=== PATIENT | male | born 1965 | race African-American/Black ===

== ENCOUNTER 2016-06-17 14:30 | Inpatient (IN) ==
[2016-06-17] MEDS ORDERED: SODIUM CHLORIDE 0.9% 500 ML IV STA (15:05)
[2016-06-17] MEDS ORDERED: MECLIZINE 25 MG TABLET PO STA (15:05)
[2016-06-17] MEDS ORDERED: MECLIZINE 25 MG TABLET ONE (15:18)
--- NOTE | 2016-06-17 15:25 | CT Report ---
CT head/brain wo con Indication: Dizziness Comparison: None Technique: Multiple axial tomographic images of the brain were obtained without use of intravenous contrast. Findings: Midline structures are nondisplaced. There is no acute intracranial hemorrhage or evidence of hydrocephalus. Paranasal sinuses and mastoid air cells are essentially clear. IMPRESSION: No acute intracranial abnormality demonstrated. PROCEDURE INTERPRETED AT [facility] DEPARTMENT OF RADIOLOGY Final Report Signed by: Dr James Darby
--- NOTE | 2016-06-17 15:35 | XRay Report ---
XR chest 1V portable Indication: SOB Comparison: Chest x-ray dated August 11, 2014 Technique: Single frontal view of the chest Findings: Borderline cardiomegaly. Mild right infrahilar opacification may reflect atelectasis or early consolidative process such as pneumonia. There is mild elevation of the right hemidiaphragm. Osseous and surrounding soft tissue structures appear grossly unchanged. IMPRESSION: As above. PROCEDURE INTERPRETED AT [facility] DEPARTMENT OF RADIOLOGY Final Report Signed by: Dr James Darby
--- NOTE | 2016-06-17 15:51 | Emergency Department Note ---
Iesha Au Brittany, am scribing for, and in the presence of, Dudley Martínez MD 15:17. Tanya Au Charles R, MD, personally performed the services described in this documentation, ascribed by Mima Julian in my presence, and it is both accurate and complete [id number] . Arrival - Arrival Chief Complaint: Extremity Problem Stated Complaint: LEFT ARM/LEFT KNEE PAIN, BLURRED VISION ED Nursing Triage Note: PT C/O PAIN TO LEFT ARM AND LEFT KNEE, WAS SEEN AT [facility] ER LAST NIGHT AND GIVEN STEROID SHOT WITH RELIEF. PT STATES PAIN RETURNED THIS AM. STATES AT 1000 THIS AM HE STARTED TO SEE BLACK SPOTS OFF AND ON. PT ALSO REPORTS URINARY S/S X2 DAYS. ADMITS TO MARIJUANA USE RECENTLY Limitations: No Limitations Source: Patient Time Seen by Provider: 06/17/16 14:45 - History of Present Illness HPI Narrative: This is a 50 y/o black male,who presents to the ED by EMS with c/o arthralgia which started last night. He was seen at [facility] ER for the same complaints. He states he was given a steroid shot which helped. He states this morning his knees, hands, arms and back started to hurt again. He was written an RX for prednisone. Pt also complains of dizziness. Pt has no other complaints /pain in the ED at this time. Pt has a PMHx of HTN, peripheral neuropathy, eye problems, fibromyalgia, GOUT, RA, GERD, enlarged prostate, diverticulits, back/ neck problems, degenerative disk disease,and anemia. Pt has had orthopedic surgery. Pt has a family medical Hx of HTN and diabetes. Pt denies the use of tobacco and alcohol, but notes the use of marijuana. Pt states he thinks he "Hit " some marijuana last week. Pt's PCP is Dr. Mendoza. Pt states he has an appointment with a neurologist on the of this month for "swelling in the groin." Onset (ago): hour(s) (Started last night) Consistency: constant Severity: moderate Allergies/Adverse Reactions: Allergies Allergy/AdvReac Type Severity Reaction Status Date / Time No Known Allergies Allergy Verified 06/17/16 14:38 Home Medications: Home Medications Medication Instructions Recorded Confirmed Type Baclofen [Baclofen] 10 mg PO QID 11/19/14 04/21/16 History Ergocalciferol [Drisdol] 50,000 unit PO Q7D 11/19/14 04/21/16 History Furosemide Tab [Lasix Tab] 40 mg PO DAILY 11/19/14 04/10/16 History HYDROcodone/ACETAMIN 10-325 [[place] 1 tablet PO TID 11/19/14 04/21/16 History 10-325] Losartan [Cozaar] 50 mg PO DAILY 11/19/14 04/10/16 History Omeprazole Magnesium [Prilosec Otc] 20 mg PO DAILY 11/19/14 04/21/16 History Pramipexole [Mirapex] 0.25 mg PO BEDTIME 11/19/14 04/21/16 History Tramadol HCl [Tramadol HCl] 50 mg PO BID 11/19/14 04/21/16 History predniSONE TAB [PredniSONE] 10 mg PO DAILY 11/19/14 04/10/16 History Methotrexate Tab 6 tablet PO Q7DAY 01/24/15 04/21/16 History Allopurinol [Zyloprim] 300 mg PO DAILY 04/10/16 04/10/16 History Colchicine [Colcrys] 0.6 mg PO DAILY PRN 04/10/16 04/10/16 History Etanercept [Enbrel] 50 mg SQ Q7DAY 04/10/16 04/10/16 History Folic Acid Tab 1 mg PO DAILY 04/10/16 04/10/16 History Gabapentin [Neurontin] 800 mg PO TID 04/10/16 04/10/16 History sulfaSALAzine [Azulfidine] 500 mg PO BID 04/10/16 04/21/16 History Cyanocobalamin (Vitamin B-12) 1,000 mcg PO Q14D 04/21/16 04/21/16 History [Vitamin B-12] Tamsulosin [Flomax] 0.4 mg PO DAILY 04/21/16 04/21/16 History Review of System - Review of System 12 point system: reviewed and no additional remarkable complaints except as stated - Review of System Musculoskeletal: Present: arthralgia (Pain in the knees, hands, and back) Medical,Surgical,& Family Hx - Medical History Cardio: History of: Hypertension Psychological: No history of: Anxiety Disorders, Bipolar Disorder, Depression, Schizophrenia Neurology: History of: Peripheral Neuropathy No history of: Seizures HEENT: History of: Eye Problem (DRY, ITCHING) Rheumatology: History of;: Fibromyalgia, Gout, Rheumatoid Arthritis Genitourinary: History of: Prostate Problems (ENLARGED PROSTATE) Gastrointestinal: History of: Diverticulitis/ Diverticulosis, GERD Musculoskeletal: History of: Back/Neck Problems (BULGING DISK), Degenerative Disk Disease, Musculoskeletal Problems (ARTHRITIS IN KNEES) Hematology: History of: Anemia Reproductive: No histroy: Reproductive Cancer Other: History of: Miscellaneous Medical Problems (arthritis) - Surgical History Cardiac Surgeries: Patient Denies: Cardiac Catheterization HEENT Surgeries: Patient denies: Eye Surgery, Tonsilectomy & Adenoidectomy Abdominal Surgeries: Patient denies: Abdominal Surgery Reproductive Surgeries: Patient denies;: Genitourinary Surgery Orthopedic Surgeries: Surgical HX of;: Orthopedic Surgery - Family History Family History: Reports;: Family Diabetes (MOTHER, SISTER), Family Hypertension (MOTHER) Denies;: Family Anesthesia Reaction, Family Cancer, Family Heart Disease, Family Stroke - Social History Smoking Status: Former smoker Frequency of Alcohol Use: None Type of Drug Use: Marijuana Exam Vital Signs: Vital Signs Temperature 98.6 F 06/17/16 14:44 Pulse Rate 71 06/17/16 15:31 Respiratory Rate 16 06/17/16 15:29 Blood Pressure 126/70 06/17/16 15:31 O2 Sat by Pulse Oximetry 97 06/17/16 15:29 - General General appearance: alert, in no apparent distress - Head Head exam: Present: atraumatic, normocephalic, normal inspection - Eye Eye exam: Present: normal appearance, PERRL, EOMI - ENT ENT exam: Present: normal exam, normal oropharynx, mucous membranes moist - Neck Neck exam: Present: normal inspection, full ROM, trachea midline. Absent: tenderness - Chest Chest inspection: Present: normal inspection, symmetric chest wall rise. Absent : tenderness, rash, abscess - Respiratory Respiratory exam: Present: normal lung sounds bilaterally. Absent: prolonged expiratory phase, rales, respiratory distress, rhonchi, stridor, wheezes - Cardiovascular Cardiovascular exam: Present: regular rate, normal rhythm, normal heart sounds. Absent: murmur, rubs, gallop, clicks - Abdominal Exam Abdominal exam: Present: soft. Absent: distention, tenderness, guarding, rebound, rigidity - Extremities Exam Extremities exam: Present: joint swelling (Joint swelling and painful), other ( Deviated hands secondary to RA) - Back Exam Back exam: Present: normal inspection, full ROM. Absent: tenderness, muscle spasm, rashes - Neurological Exam Neurological exam: Present: alert, oriented X3, CN II-XII intact, other ("Thick Tounged") - Psychiatric Psychiatric exam: Present: normal affect, normal mood. Absent: agitated, anxious - Skin Skin exam: Present: warm, dry, intact, normal color. Absent: diaphoresis Course - Consultations Consultation #1: Hospitalist will admit patient Time: 16:58 Results - Labs CBC & BMP: 06/17/16 15:55 06/17/16 15:55 Lab Results: I have reviewed the patients labs - Diagnostic Findings Procedure: Chest x-ray: report reviewed by me (Borderline cardiomegaly. Mild right infrahilar opacification may reflect atelectasis or ealry consolidative process such as pneumonia. There is mild elevation fo the right hemidiaphragm. Osseous and surrounding soft tissure structures appear grossly unchanged. ), CT : report reviewed by me (CT head/brain wo con: No acute intracrainal abnormality demonstrated. ) Critical Care Time Critical Care Time: Yes Total Critical Care Time: 60 Disposition Clinical Impression: Hypokalemia, Hyponatremia, Rheumatoid arthritis, Rheumatoid arthritis flare, Dizziness, Lower extremity edema, Gout, possible right lower lobe pneumonia, Leukocytosis Case discussed with: patient Disposition: Still a Patient Condition: Guarded Time of Disposition: 16:59
[2016-06-17 16:03] LABS: Apearance,Urine CLEAR (Clear); Bilirubin,Urine Negative (Negative); Blood, Urine Moderate mg/dL (Negative); Glucose,Urine (UA) Negative (Negative); Ketones,Urine Negative (Negative); Nitrite,Urine Negative (Negative); Protein,Urine Negative; RBC,Urine 1 /HPF (0-4); Urine Color Yellow (Yellow); Urine Specific Gravity 1.003 (1.001-1.035); Urine Urobilinogen < 2.0 EU/DL (0.2-1.0); WBC,Urine 2 /HPF (0-6)
[2016-06-17 16:06] LABS: Basophils % 0.1 % (0.0-0.8); Eosinophils % 0.1 % (0.00-10.9); Hematocrit 36.6 VOL% (42.0-52.0); Immature Granulocytes % 1.1 %; Lymphocytes # 0.8 10*3/uL (1.4-4.0); Lymphocytes % 4.4 % (21.2-54.2); Mean Corpuscular HGB Conc 38.3 GM/DL (32-36); Mean Corpuscular Hemoglobin 34 PG (27-34); Mean Corpuscular Volume 87.6 FL (87-102); Mean Platelet Volume 10.1 FL (9.6-12.0); Monocytes # 1.1 10*3/uL (0.11-0.8); Monocytes % 6.4 % (1.7-12.7); Neutrophils # 15.8 10*3/uL (1.4-7.4); Neutrophils % 87.9 % (38.7-73.9); Platelet Count 269 10*3/uL (130-400); Red Blood Count 4.18 10*6/uL (3.8-5.5); Red Cell Distribution Width 12.4 % (9.3-17.3); White Blood Count 17.9 10*3/uL (4.5-13.71)
[2016-06-17 16:10] LABS: PT Patient Result 10.8 SECS
[2016-06-17 16:11] LABS: Barbiturates Screen,Urine Negative (Negative); Benzodiazepines Screen,Urine Negative (Negative); Cannabinoid Screen,Urine Negative (Negative); Opiate Screen,Urine Positive (Negative); Phencyclidine Screen,Urine Negative (Negative)
[2016-06-17 16:33] LABS: Alanine Aminotransferase 73 U/L (16-61); Alkaline Phosphatase 76 U/L (45-117); Aspartate Amino Transferase 162 U/L (0-37); Blood Urea Nitrogen 16 MG/DL (7-18); Glucose 111 MG/DL (74-106); Magnesium 2.1 MG/DL (1.8-2.4); Osmolality,Calculated 228.3 MOS/KG (273-304); Potassium 2.8 MMOL/L (3.5-5.1); Troponin I Only 0.032 NG/ML (0.00-0.045); Uric Acid 4.3 MG/DL (3.5-7.2)
[2016-06-17 16:36] LABS: Sodium 112 MMOL/L (136-145)
[2016-06-17 16:48] LABS: Band Neutrophils 1 % (0-10); Lymphocytes 10 % (20-55); Poikilocytosis Slight; Segmented Neutrophils 87 % (50-85); Stomatocytes Few; Total Cells Counted 100
[2016-06-17 16:49] LABS: Platelet Estimate Normal
[2016-06-17] MEDS ORDERED: cefTRIAXone 1,000 MG in SODIUM CHLORIDE 0.9% 100 ML IV STA (16:55)
[2016-06-17 17:12] LABS: Sedimentation Rate-Westergren 19 MM/HR (0-20)
[2016-06-17] MEDS ORDERED: cefTRIAXone 1,000 MG VIAL ONE (17:19)
--- NOTE | 2016-06-17 18:02 | Hospitalist History & Physical ---
Assessment and Plan - Time spent with patient Time spent with patient: Greater than 30 minutes (1) Dizziness Status: Acute Current Visit: Yes (2) Gout Status: Acute Assessment and plan: colchicine 0.6mg PO Q8 hours resume home meds as appropriate hydrate well Current Visit: Yes (3) Hypokalemia Status: Acute Assessment and plan: replace with KDUR 20mg PO Q4h routine labs in AM Current Visit: Yes (4) Hyponatremia Status: Acute Assessment and plan: hydrate well with NS at 125/HR routine labs in AM Current Visit: Yes (5) Rheumatoid arthritis Status: Acute Assessment and plan: resume home meds as appropriate PRN pain medications will CT chest tomorrow to further investigate hylar mass routine labs in AM DVT prophylaxis PRN meds regular diet further plan and addendum to follow per Dr. Light Current Visit: Yes History of Present Illness Chief complaint: dizziness, weakness, gout History of present illness: Mr. Bruce is a 50 year old male who presents to the Er today with left leg pain, he states he has severe arthritis and gout and it feels like a flair of this. He also tells me that he feels very weak and dizzy. He is complaining of blurry vision, and seeing spots on the wall, in both eyes, denies painful eye movement or headache. He states he did not have much of an appetite yesterday and was weaker, but this morning it was much more severe, along with the pain in his leg. He went to the ER in [place] yesterday per nursing staff and was given a steroid injection. His sodium is low today at 112. Also found to by hypokalemic. He denies recent illness, denies chest pain, shortness of breath, abdominal pain, n/v/d, fever, chills or dysuria. He is also noted to have a small hilar infiltrate on chest xray. He tells me a PMH of HTN, peripheral neuropathy, eye problems, fibromyalgia, GOUT, RA, GERD, enlarged prostate, diverticulits, back/neck problems, degenerative disk disease,and anemia. He stopped smoking cigarettes "a while ago" and does admit to occasional marijuana and alcohol use. Home Medications Medication Instructions Recorded Confirmed Type Baclofen [Baclofen] 10 mg PO QID 11/19/14 06/17/16 History Ergocalciferol [Drisdol] 50,000 unit PO Q7D 11/19/14 06/17/16 History Furosemide Tab [Lasix Tab] 40 mg PO DAILY 11/19/14 06/17/16 History HYDROcodone/ACETAMIN 10-325 [[place] 1 tablet PO TID 11/19/14 06/17/16 History 10-325] Losartan [Cozaar] 50 mg PO DAILY 11/19/14 06/17/16 History Omeprazole Magnesium [Prilosec Otc] 20 mg PO DAILY 11/19/14 06/17/16 History Pramipexole [Mirapex] 0.25 mg PO BEDTIME 11/19/14 06/17/16 History Tramadol HCl [Tramadol HCl] 50 mg PO BID 11/19/14 06/17/16 History predniSONE TAB [PredniSONE] 10 mg PO DAILY 11/19/14 06/17/16 History Methotrexate Tab 6 tablet PO FR 01/24/15 06/17/16 History Allopurinol [Zyloprim] 300 mg PO DAILY 04/10/16 06/17/16 History Colchicine [Colcrys] 0.6 mg PO DAILY PRN 04/10/16 06/17/16 History Etanercept [Enbrel] 50 mg SUBCUT FR 04/10/16 06/17/16 History Folic Acid Tab 1 mg PO DAILY 04/10/16 06/17/16 History Gabapentin [Neurontin] 800 mg PO TID 04/10/16 06/17/16 History sulfaSALAzine [Azulfidine] 500 mg PO BID 04/10/16 06/17/16 History Cyanocobalamin (Vitamin B-12) 1,000 mcg PO Q14D 04/21/16 06/17/16 History [Vitamin B-12] Tamsulosin [Flomax] 0.4 mg PO DAILY 04/21/16 06/17/16 History metOLazone [Metolazone] 5 mg PO DAILY 06/17/16 06/17/16 History Allergies Allergy/AdvReac Type Severity Reaction Status Date / Time No Known Allergies Allergy Verified 06/17/16 14:38 Medical,Surgical,& Family Hx - Medical History Cardio: History of: Hypertension Psychological: No history of: Anxiety Disorders, Bipolar Disorder, Depression, Schizophrenia Neurology: History of: Peripheral Neuropathy No history of: Seizures HEENT: History of: Eye Problem (DRY, ITCHING) Rheumatology: History of;: Fibromyalgia, Gout, Rheumatoid Arthritis Genitourinary: History of: Prostate Problems (ENLARGED PROSTATE) Gastrointestinal: History of: Diverticulitis/ Diverticulosis, GERD Musculoskeletal: History of: Back/Neck Problems (BULGING DISK), Degenerative Disk Disease, Musculoskeletal Problems (ARTHRITIS IN KNEES) Hematology: History of: Anemia Reproductive: No histroy: Reproductive Cancer Other: History of: Miscellaneous Medical Problems (arthritis) - Surgical History Cardiac Surgeries: Patient Denies: Cardiac Catheterization HEENT Surgeries: Patient denies: Eye Surgery, Tonsilectomy & Adenoidectomy Abdominal Surgeries: Patient denies: Abdominal Surgery Reproductive Surgeries: Patient denies;: Genitourinary Surgery Orthopedic Surgeries: Surgical HX of;: Orthopedic Surgery - Family History Family History: Reports;: Family Diabetes (MOTHER, SISTER), Family Hypertension (MOTHER) Denies;: Family Anesthesia Reaction, Family Cancer, Family Heart Disease, Family Stroke - Social History Smoking Status: Former smoker Frequency of Alcohol Use: None Type of Drug Use: Marijuana Functional capacity: uses cane/walker - Constitutional Constitutional: Present: fatigue, weakness. Absent: chills, increased appetite (decreased appetite) - EENT Eyes: Present: blurry vision, other (seeing spots) Nose, mouth and throat: Absent: nasal congestion - Cardiovascular Cardiovascular: Absent: dyspnea, dyspnea on exertion - Respiratory Respiratory: Absent: dyspnea, dyspnea on exertion - Gastrointestinal Gastrointestinal: Absent: abdominal pain, nausea, vomiting - Genitourinary Genitourinary: Absent: dysuria, hematuria - Musculoskeletal Musculoskeletal: Present: back pain, other (gout pain) - Neurological Neurological: Present: dizziness. Absent: confusion - Psychiatric Psychiatric: Absent: anxiety, confusion - Endocrine Endocrine: Present: fatigue. Absent: cold intolerance - Hematologic/Lymphatic Hematologic/Lymphatic: Absent: easy bleeding, easy bruising Exam - Constitutional Vitals: Period Temp Pulse Resp BP Sys/Mehta Pulse Ox Last 24 Hr 98.6 F-98.6 F 70-77 15-18 110-126/67-84 97-99 General appearance: no acute distress, over weight - Head Head exam: Present: normal inspection, normocephalic - Eye Eye exam: Present: EOMI, conjunctival injection. Absent: scleral icterus Pupils: Present: BO, normal accommodation - ENT ENT exam: Present: normal exam, normal oropharynx - Neck Neck exam: Present: normal inspection. Absent: lymphadenopathy - Respiratory Respiratory exam: Present: clear to auscultation bilaterally. Absent: wheezes - Cardiovascular Cardiovascular exam: Present: regular rate and rhythm. Absent: tachycardia - GI/Abdominal GI/Abdominal exam: Present: normal bowel sounds, tenderness (generalized on exam ), soft - Extremities Exam Extremities exam: Present: normal inspection, full ROM. Absent: edema - Back Exam Back exam: Present: normal inspection. Absent: muscle spasm - Neurological Exam Neurological exam: Present: alert, oriented X3 - Psychiatric Psychiatric exam: Present: normal affect, normal mood - Skin Skin exam: Present: normal color, warm, dry Results - Labs CBC & BMP: 06/17/16 15:55 06/17/16 15:55 Lab Results: I have reviewed the past 24 hour labs
[2016-06-17] MEDS ORDERED: cefTRIAXone 1,000 MG in SODIUM CHLORIDE 0.9% 100 ML IV SCH (19:00)
[2016-06-17] MEDS ORDERED: MORPHINE 2 MG/1 ML SYRINGE IV PRN (19:17)
[2016-06-17] MEDS ORDERED: CYANOCOBALAMIN 500 MCG TABLET PO SCH (19:17)
[2016-06-17] MEDS ORDERED: ONDANSETRON 4 MG/2 ML VIAL IV PRN (19:17)
[2016-06-17] MEDS ORDERED: ERGOCALCIFEROL 50,000 UNIT CAPSULE PO SCH (21:00)
[2016-06-17] MEDS: POTASSIUM CHLORIDE 20 MEQ TABLET PO SCH ×2 (21:11→22:53)
[2016-06-17] MEDS: ENOXAPARIN 40 MG/0.4 ML SYRINGE SUBCUT SCH (21:11)
[2016-06-17] MEDS: BACLOFEN 10 MG TABLET PO SCH (21:11)
[2016-06-17] MEDS: traMADol 50 MG TABLET PO SCH (21:11)
[2016-06-17] MEDS: SODIUM CHLORIDE 0.9% 1,000 ML IV SCH (21:12)
[2016-06-18 06:10] LABS: Basophils % 0.1 % (0.0-0.8); Eosinophils % 0.1 % (0.00-10.9); Hematocrit 36.2 VOL% (42.0-52.0); Hemoglobin 13.3 GM/DL (14.0-18.0); Immature Granulocytes % 0.8 %; Immature Granulocytes Absolute 0.13 #; Lymphocytes # 1.4 10*3/uL (1.4-4.0); Lymphocytes % 8.5 % (21.2-54.2); Mean Corpuscular HGB Conc 36.7 GM/DL (32-36); Mean Corpuscular Hemoglobin 33 PG (27-34); Mean Platelet Volume 9.8 FL (9.6-12.0); Monocytes # 1.7 10*3/uL (0.11-0.8); Monocytes % 10.5 % (1.7-12.7); Neutrophils # 13.2 10*3/uL (1.4-7.4); Platelet Count 254 10*3/uL (130-400); Red Blood Count 4.02 10*6/uL (3.8-5.5); Red Cell Distribution Width 12.3 % (9.3-17.3); White Blood Count 16.4 10*3/uL (4.5-13.71)
[2016-06-18 07:18] LABS: Albumin 3.7 G/DL (3.4-5.0); Magnesium 2.3 MG/DL (1.8-2.4); Osmolality,Calculated 243.2 MOS/KG (273-304); Potassium 2.7 MMOL/L (3.5-5.1); Troponin I Only 0.032 NG/ML (0.00-0.045)
[2016-06-18] MEDS: POTASSIUM CHLORIDE 20 MEQ TABLET PO SCH ×5 (08:11→22:50)
[2016-06-18] MEDS: LOSARTAN 50 MG TABLET PO SCH (08:12)
[2016-06-18] MEDS: PANTOPRAZOLE 40 MG TABLET PO SCH (08:12)
[2016-06-18] MEDS: BACLOFEN 10 MG TABLET PO SCH ×4 (08:12→21:33)
[2016-06-18] MEDS: traMADol 50 MG TABLET PO SCH ×2 (08:12→21:32)
[2016-06-18] MEDS: FOLIC ACID 1 MG TABLET PO SCH (08:12)
[2016-06-18] MEDS: predniSONE 10 MG TABLET PO SCH (08:12)
[2016-06-18] MEDS: ALLOPURINOL 300 MG TABLET PO SCH (08:12)
[2016-06-18] MEDS: TAMSULOSIN 0.4 MG CAPSULE PO SCH (08:13)
--- NOTE | 2016-06-18 08:19 | CT Report ---
History is hyponatremia, abnormal chest x-ray, right basilar atelectasis or infiltrates 80 cc Omni 350 utilized No enlarged mediastinal or hilar nodes seen. No pleural effusions present There is question a tiny gallstone the visualized upper abdomen with suspected duodenal diverticula. No consolidative infiltrates seen. There is minimal patchy and stranding opacities in the right middle lobe. No discrete pulmonary nodules seen. Impression: 1. Minimal patchy infiltrate atelectasis or scarring in the right middle lobe 2. Questionable cholelithiasis PROCEDURE INTERPRETED AT [facility] DEPARTMENT OF RADIOLOGY Final Report Signed by: Dr. Janel Celaya
[2016-06-18] MEDS: SODIUM CHLORIDE 0.9% 1,000 ML IV SCH ×2 (08:31→17:07)
--- NOTE | 2016-06-18 09:44 | EKG Report ---
Stationary ECG Study [facility] ER Test Date: 06/17/2016 3:50:35 PM Pat Name: NORRIS ALCAZAR Department: Room: 216 Gender: M Wet Wheeler: : 1965 Requested by: Dudley Felipe Order Number: [id number] Vonnie MD: JOHN ROOT Intervals [place] Rate: 68 P: 45 [place]: 181 QRS: 1 QRSD: 102 T: 8 QT: 416 QTc: 433 Interpretive Statements SINUS RHYTHM MODERATE VOLTAGE CRITERIA FOR LVH, CONSIDER NORMAL VARIANT NONSPECIFIC T-WAVE ABNORMALITY Electronically Signed On 06-18-16 09:56:06 LOGISTICS OPERATIONS MANAGER by JOHN ROOT [email or web address]
--- NOTE | 2016-06-18 14:16 | Hospitalist Progress Note ---
Assessment and Plan (1) Hypokalemia Status: Acute Assessment and plan: Treat with oral potassium and recheck electrolytes in the morning Current Visit: Yes (2) Hyponatremia Status: Acute Assessment and plan: Continue hydration with normal saline and check sodium in the morning Current Visit: Yes (3) Gout Status: Acute Assessment and plan: Continue colchicine today and consider reducing dose tomorrow. Current Visit: Yes Hospitalist: Subjective Interval history: Mr. Bruce has less gout pain today. His mental processes seem more normal but not yet to baseline. We continue treatment of hyponatremia and hypokalemia Exam - Constitutional Vitals: Period Temp Pulse Resp BP Sys/Mehta Pulse Ox Last 24 Hr 97.8 F-98.9 F 63-74 17-20 98-123/56-65 94-98 Exam: Constitutional System: No distress. No tremulousness. Head: Normocephalic, atraumatic. Ears, Nose and Throat System: No evidence of Otitis or Mastoiditis. No epistaxis or discharge Eyes System: Pupils equal, round, and reactive. Extraocular muscles intact. Neck: Supple, without adenopathy, No jugular venous distention. No thyromegaly , neck mass, or prior surgery apparent. Respiratory System: Chest clear to auscultation. Cardiovascular System: Heart with regular rate and rhythm. No murmur. GI System: Abdomen soft, nontender. Normoactive bowel sounds present. Musculoskeletal System: limbs with no pedal edema. Full distal pulses. Neurological System: No discernable sensory deficit. No aphasia Psychiatric System: Conversation is slow but rational Results - Labs CBC & BMP: 06/18/16 05:53 06/18/16 05:53 Lab Results: I have reviewed the past 24 hour labs
[2016-06-18] MEDS: cefTRIAXone 1,000 MG in SODIUM CHLORIDE 0.9% 100 ML IV SCH (17:18)
[2016-06-18] MEDS: ENOXAPARIN 40 MG/0.4 ML SYRINGE SUBCUT SCH (18:37)
[2016-06-19] MEDS: SODIUM CHLORIDE 0.9% 1,000 ML IV SCH ×4 (02:05→20:24)
[2016-06-19] MEDS: POTASSIUM CHLORIDE 20 MEQ TABLET PO SCH (03:46)
[2016-06-19] MEDS: COLCHICINE 0.6 MG TABLET PO SCH ×2 (07:28→09:28)
[2016-06-19] MEDS ORDERED: POTASSIUM CHLORIDE RIDER 10 MEQ in PREMIX 1 EACH IV SCH (08:30)
[2016-06-19] MEDS ORDERED: POTASSIUM CHLORIDE 20 MEQ TABLET PO SCH (08:30)
[2016-06-19] MEDS ORDERED: COLCHICINE 0.6 MG TABLET PO SCH (09:00)
[2016-06-19] MEDS: LOSARTAN 50 MG TABLET PO SCH (09:27)
[2016-06-19] MEDS: ALLOPURINOL 300 MG TABLET PO SCH (09:27)
[2016-06-19] MEDS: predniSONE 10 MG TABLET PO SCH (09:28)
[2016-06-19] MEDS: BACLOFEN 10 MG TABLET PO SCH ×2 (09:28→20:24)
[2016-06-19] MEDS: PANTOPRAZOLE 40 MG TABLET PO SCH (09:28)
[2016-06-19] MEDS: traMADol 50 MG TABLET PO SCH (09:28)
[2016-06-19] MEDS: FOLIC ACID 1 MG TABLET PO SCH (09:28)
[2016-06-19] MEDS: TAMSULOSIN 0.4 MG CAPSULE PO SCH (09:28)
--- NOTE | 2016-06-19 11:27 | Hospitalist Progress Note ---
Assessment and Plan (1) Hypokalemia Status: Acute Assessment and plan: Waiting for sodium and potassium lab from this morning. Current Visit: Yes (2) Hyponatremia Status: Acute Assessment and plan: Continue hydration with normal saline and check sodium in the morning Current Visit: Yes (3) Gout Status: Acute Assessment and plan: Dose is reduced to once daily. I reviewed the patient's progress with his sister on the phone today. The patient is confused likely on account of his hyponatremia which we're treating with normal saline. I anticipate improvement in the next 24 hours. We are reducing the patient's sedatives to help with the confusion. He may be having some withdrawal from higher doses of sedatives which she was taking at home. Current Visit: Yes Hospitalist: Subjective Interval history: The patient has been confused this morning. The patient is more conversive but is disoriented. The patient does not complain of cough or pain. He feels confused. Exam - Constitutional Vitals: Period Temp Pulse Resp BP Sys/Mehta Pulse Ox Last 24 Hr 97.2 F-98.0 F 68-91 16-20 100-140/61-74 94-100 Exam: Constitutional System: Mild distress on account of anxiety due to disorientation. No tremulousness. Head: Normocephalic, atraumatic. Ears, Nose and Throat System: No evidence of Otitis or Mastoiditis. No epistaxis or discharge Eyes System: Pupils equal, round, and reactive. Extraocular muscles intact. Neck: Supple, without adenopathy, No jugular venous distention. No thyromegaly , neck mass, or prior surgery apparent. Respiratory System: Chest clear to auscultation. Cardiovascular System: Heart with regular rate and rhythm. No murmur. GI System: Abdomen soft, nontender. Normoactive bowel sounds present. Musculoskeletal System: limbs with no pedal edema. Full distal pulses. Neurological System: No discernable sensory deficit. No aphasia Psychiatric System: Conversation is slow and disoriented Results - Labs CBC & BMP: 06/18/16 05:53 06/18/16 05:53 Lab Results: I have reviewed the past 24 hour labs - Diagnostic Findings Procedure: CT - chest: report reviewed by me (no tumor is seen. The patient does have some infiltrate)
[2016-06-19 12:26] LABS: Calcium 8.7 MG/DL (8.5-10.1); Osmolality,Calculated 271.8 MOS/KG (273-304); Potassium 3.5 MMOL/L (3.5-5.1)
[2016-06-19] MEDS: GABAPENTIN 100 MG CAPSULE PO SCH ×2 (14:56→20:24)
[2016-06-19] MEDS: cefTRIAXone 1,000 MG in SODIUM CHLORIDE 0.9% 100 ML IV SCH (21:49)
[2016-06-20 06:26] LABS: Calcium 8.7 MG/DL (8.5-10.1); Magnesium 2.2 MG/DL (1.8-2.4); Osmolality,Calculated 273.7 MOS/KG (273-304); Potassium 3.5 MMOL/L (3.5-5.1)
[2016-06-20] MEDS: LOSARTAN 50 MG TABLET PO SCH (08:43)
[2016-06-20] MEDS: COLCHICINE 0.6 MG TABLET PO SCH (08:43)
[2016-06-20] MEDS: TAMSULOSIN 0.4 MG CAPSULE PO SCH (08:43)
[2016-06-20] MEDS: FOLIC ACID 1 MG TABLET PO SCH (08:44)
[2016-06-20] MEDS: BACLOFEN 10 MG TABLET PO SCH ×2 (08:44→21:00)
[2016-06-20] MEDS: GABAPENTIN 100 MG CAPSULE PO SCH ×2 (08:45→21:00)
[2016-06-20] MEDS: predniSONE 10 MG TABLET PO SCH (08:46)
[2016-06-20] MEDS: PANTOPRAZOLE 40 MG TABLET PO SCH (08:46)
[2016-06-20] MEDS: ALLOPURINOL 300 MG TABLET PO SCH (08:46)
[2016-06-20] MEDS: traMADol 50 MG TABLET PO PRN ×2 (14:31→22:22)
--- NOTE | 2016-06-20 14:37 | Hospitalist Progress Note ---
Assessment and Plan (1) Hypokalemia Status: Acute Assessment and plan: Sodium and potassium normalized Current Visit: Yes (2) Hyponatremia Status: Acute Assessment and plan: Hyponatremia now resolved and patient is off of IV fluids. He has some edema left over from the volume expansion Current Visit: Yes (3) Gout Status: Acute Assessment and plan: Dose is reduced to once daily. I reviewed the patient's progress with his sister on the phone today. The patient is confused likely on account of his hyponatremia which we're treating with normal saline. I anticipate improvement in the next 24 hours. We are reducing the patient's sedatives to help with the confusion. He may be having some withdrawal from higher doses of sedatives which he was taking at home. Current Visit: Yes Hospitalist: Subjective Interval history: The patient was admitted to the hospital with hyponatremia and hypokalemia. He also appears to have had withdrawal from prescribed substances. The patient's electrolytes are now normalized and are staying within normal limits without IV intervention. The patient is alert awake but disoriented. The patient is having some confusion. He is able to ambulate in the room without falling. Exam - Constitutional Vitals: Period Temp Pulse Resp BP Sys/Mehta Pulse Ox Last 24 Hr 97.1 F-98.7 F 64-79 16-20 104-154/73-97 94-100 Exam: Constitutional System: Mild distress on account of anxiety due to disorientation. No tremulousness. Head: Normocephalic, atraumatic. Ears, Nose and Throat System: No evidence of Otitis or Mastoiditis. No epistaxis or discharge Eyes System: Pupils equal, round, and reactive. Extraocular muscles intact. Neck: Supple, without adenopathy, No jugular venous distention. No thyromegaly , neck mass, or prior surgery apparent. Respiratory System: Chest clear to auscultation. Cardiovascular System: Heart with regular rate and rhythm. No murmur. GI System: Abdomen soft, nontender. Normoactive bowel sounds present. Musculoskeletal System: limbs with no pedal edema. Full distal pulses. Neurological System: No discernable sensory deficit. No aphasia Psychiatric System: Conversation is slow and disoriented Results - Labs CBC & BMP: 06/18/16 05:53 06/20/16 05:45 Lab Results: I have reviewed the past 24 hour labs
[2016-06-20] MEDS: cefTRIAXone 1,000 MG in SODIUM CHLORIDE 0.9% 100 ML IV SCH (21:27)
[2016-06-21 06:10] LABS: Basophils # 0.1 10*3/uL (0.0-0.2); Basophils % 0.4 % (0.0-0.8); Eosinophils # 0.2 10*3/uL (0.0-0.87); Hematocrit 33.8 VOL% (42.0-52.0); Hemoglobin 11.5 GM/DL (14.0-18.0); Immature Granulocytes % 0.4 %; Immature Granulocytes Absolute 0.05 #; Lymphocytes # 3.2 10*3/uL (1.4-4.0); Lymphocytes % 28.4 % (21.2-54.2); Mean Corpuscular Hemoglobin 33 PG (27-34); Mean Corpuscular Volume 97.4 FL (87-102); Mean Platelet Volume 9.8 FL (9.6-12.0); Monocytes # 1.2 10*3/uL (0.11-0.8); Monocytes % 10.9 % (1.7-12.7); Neutrophils # 6.6 10*3/uL (1.4-7.4); Neutrophils % 57.9 % (38.7-73.9); Platelet Count 257 10*3/uL (130-400); Red Blood Count 3.47 10*6/uL (3.8-5.5); Red Cell Distribution Width 13.2 % (9.3-17.3); White Blood Count 11.4 10*3/uL (4.5-13.71)
[2016-06-21 06:33] LABS: Calcium 8.7 MG/DL (8.5-10.1); Magnesium 2.2 MG/DL (1.8-2.4); Osmolality,Calculated 277.4 MOS/KG (273-304); Potassium 3.6 MMOL/L (3.5-5.1)
[2016-06-21] MEDS: COLCHICINE 0.6 MG TABLET PO SCH (08:57)
[2016-06-21] MEDS: TAMSULOSIN 0.4 MG CAPSULE PO SCH (08:58)
[2016-06-21] MEDS: LOSARTAN 50 MG TABLET PO SCH (08:58)
[2016-06-21] MEDS: BACLOFEN 10 MG TABLET PO SCH (08:59)
[2016-06-21] MEDS: FOLIC ACID 1 MG TABLET PO SCH (08:59)
[2016-06-21] MEDS: GABAPENTIN 100 MG CAPSULE PO SCH (09:00)
[2016-06-21] MEDS: predniSONE 10 MG TABLET PO SCH (09:01)
[2016-06-21] MEDS: ALLOPURINOL 300 MG TABLET PO SCH (09:01)
[2016-06-21] MEDS: PANTOPRAZOLE 40 MG TABLET PO SCH (09:01)
[2016-06-21] MEDS: traMADol 50 MG TABLET PO PRN (09:02)
[2016-06-21 11:42] VITALS: BP 111/67
--- NOTE | 2016-06-21 14:02 | Discharge Summary ---
Hospital Course - Hospital Course Hospital Course: Mr. Bruce is more alert today and is not tremulous. Gait is stable when using a cane. The patient's mother is at the bedside. We reviewed the risk and benefit of discharge and she agrees to discharge would be safe. - Time spent with patient Time with patient DS: Greater than 30 minutes Diagnosis - Discharge Diagnosis (1) Hypokalemia Status: Resolved (2) Hyponatremia Status: Resolved (3) Gout Status: Chronic Discharge Plan - Discharge Data Disposition: Disch To Home/Self Care Condition at Discharge: Stable Discharge Diet: advance to your usual diet Activity: resume usual activities as tolerated - Discharge Medications New Baclofen Tab [Lioresal] 10 mg PO BID #60 tablet Continue predniSONE TAB [PredniSONE] 10 mg PO DAILY HYDROcodone/ACETAMIN 10-325 [[place] 10-325] 1 tablet PO TID Ergocalciferol [Drisdol] 50,000 unit PO Q7D Tramadol HCl [Tramadol Tab] 50 mg PO BID Pramipexole [Mirapex] 0.25 mg PO BEDTIME Omeprazole Magnesium [Prilosec Otc] 20 mg PO DAILY Losartan [Cozaar] 50 mg PO DAILY Furosemide Tab [Lasix Tab] 40 mg PO DAILY Methotrexate Tab 6 tablet PO FR sulfaSALAzine [Azulfidine] 500 mg PO BID Etanercept [Enbrel] 50 mg SUBCUT FR Colchicine [Colcrys] 0.6 mg PO DAILY PRN PRN Reason: Gout Allopurinol [Zyloprim] 300 mg PO DAILY Tamsulosin [Flomax] 0.4 mg PO DAILY Cyanocobalamin (Vitamin B-12) [Vitamin B-12] 1,000 mcg PO Q14D Folic Acid Tab 1 mg PO DAILY #60 Discontinued Baclofen [Baclofen] 20 mg PO QID Gabapentin [Neurontin] 800 mg PO TID metOLazone [Metolazone] 5 mg PO DAILY - Follow Up or Referral - Forms/Instructions Exam - Constitutional Vitals: Period Temp Pulse Resp BP Sys/Mehta Pulse Ox Last 24 Hr 97.2 F-98.3 F 60-80 12-20 111-139/65-86 96-100 - Respiratory Respiratory exam: Present: clear to auscultation bilaterally - Cardiovascular Cardiovascular exam: Present: regular rate and rhythm - GI/Abdominal GI/Abdominal exam: Present: normal bowel sounds Discharge Results Labs on day of discharge: Labs from last 24 hours 06/21/16 06/21/16 05:26 05:26 WBC 11.4 D RBC 3.47 L Hgb 11.5 L Hct 33.8 L MCV 97.4 MCH 33 MCHC 34.0 RDW 13.2 Plt Count 257 MPV 9.8 Neut % (Auto) 57.9 Lymph % (Auto) 28.4 [place] % (Auto) 10.9 Eos % (Auto) 2.0 Baso % (Auto) 0.4 Neut # (Auto) 6.6 Lymph # (Auto) 3.2 [place] # (Auto) 1.2 H Eos # (Auto) 0.2 Baso # (Auto) 0.1 Immature Gran % 0.4 Nucleated RBC % 0.0 Immature Gran # 0.05 Nucleated RBCs # 0.00 Sodium 140 Potassium 3.6 Chloride 101 Carbon Dioxide 29 Anion Gap 13.6 BUN 10 Creatinine 1.00 GFR Calculation 117 BUN/Creatinine Ratio 10.00 Glucose 90 Calculated Osmolality 277.4 Calcium 8.7 Magnesium 2.2 Preliminary micro results at discharge 06/17/16 18:00 Blood Culture - Preliminary Blood No growth at 3 days 06/17/16 17:18 Blood Culture - Preliminary Blood No growth at 3 days DS: Provider Date of admission: 06/17/16 17:15 Primary care physician: Josey Mendoza M.D. Attending physician on admission: Taiwo Light MD Discharging clinician: Taiwo Light MD
== END 2016-06-21 15:30 | disposition home or self-care (01) | DRG 641 ==
LOC: EDUNIT# → N.ED 14:30 → N.EDINP 17:15 → N.2E 19:16
PROVIDERS: ADMIT Internal Medicine; ATTEND Internal Medicine